=== PATIENT | male | born 1955 | race Caucasian/White ===

== ENCOUNTER 2018-10-20 12:42 | Day surgery (SDC) | payer MEDICARE, OTHER ==
[~2018-10-20] VITALS: Ht 177.8 cm; Wt 89.6 kg
[2018-10-20] MEDS ORDERED: MOTRIN 800800 MG/TAB PO (13:37)
[2018-10-20] MEDS ORDERED: ASPIRIN 32325 MG/TAB PO (13:37)
[2018-10-20 13:38] VITALS: BP 161/97; PULSE 69; TEMP 98.5
--- NOTE | 2018-10-20 15:45 | NUR ---
AMBULATED TO BATHROOM VERBAL ORDER TO COMPLETE THE NS BAG THEN LR AT [facility] PER L[facility]U [facility] CRNA AFTER
--- NOTE | 2018-10-20 19:10 | NUR ---
Pt arrived to room 358 at this time, transferred by PACU staff. at bedside. Pt awake, a&o, cooperative c cares. IV patent. O2 per NC. VSS. Physical findings unremarkable. POC et discharge criteria reviewed. Questions invited et answered, no needs at this time. Call light in reach, will monitor.
[2018-10-20 19:15] VITALS: BP 144/83; PULSE 76; TEMP 97.4
[2018-10-20 19:30] VITALS: BP 145/84; PULSE 75
[2018-10-20 20:00] VITALS: BP 156/80; PULSE 82
--- NOTE | 2018-10-20 20:00 | NUR ---
Pt resting condition unchanged. Pt has voided x2, clear, fernando/blood tinged urine. Pt c/o increased pain, especially p void; PRN pain environmental remediation consultant per pt request. Pt has maine water et crackers s c/o nausea. IVF's dc'd. Pt denies further needs. Will continue c discharge process.
[2018-10-20 20:30] VITALS: BP 148/86; PULSE 78; TEMP 98.1
--- NOTE | 2018-10-20 21:00 | NUR ---
Pt meets dc criteria; pain controlled, pt voiding s difficulty, maine po intake s nausea. Discharge teaching provided to pt et including but not limited to new medications, potential post-op complications, et f/u appts. INT dc'd. Pt/ escorted out at this time.
== END 2018-10-20 21:00 | disposition home or self-care (01) ==
LOC: SDCO 12:42 → EDSEX 12:42 → MEDICAL 20:30 → SDCO 21:00
DX: N20.1 Calculus of ureter (principal); Z87.442 Personal history of urinary calculi; N40.0 Benign prostatic hyperplasia without lower urinary tract symptoms; M19.90 Unspecified osteoarthritis, unspecified site
CPT/HCPCS: OP; C1769; C2617; J0690; J1100; J1885; J2405; J2704; J3010; J7030; J7120; Q9967

== ENCOUNTER → 2018-12-16 | Outpatient (CLI) | payer MEDICARE, OTHER ==
[~2018-12-16] MED LIST: ASPIRIN 32325 MG/TAB PO; MOTRIN 800800 MG/TAB PO
== END ==
LOC: COL.RAD 13:22
DX: N20.2 Calculus of kidney with calculus of ureter (principal)